=== PATIENT | female | born 2000 | race Hispanic/Latino ===

== ENCOUNTER 2022-08-19 14:42 | Emergency (ER) | payer OTHER ==
[~2022-08-19] VITALS: Ht 157.5 cm; Wt 67.6 kg
[2022-08-19] MEDS ORDERED: KETO10TA2 PO (16:22)
[2022-08-19] MEDS ORDERED: CYCL-309 PO (16:22)
[2022-08-19 16:30] VITALS: BP 127/72
== END 2022-08-19 17:13 | disposition home or self-care (01) ==
LOC: EDH 14:42
DX: M62.838 Other muscle spasm (principal)